=== PATIENT | female | born 1955 | race Caucasian/White ===

== ENCOUNTER 2019-06-30 14:46 | Inpatient (IN) | payer BC, OTHER ==
[~2019-06-30] VITALS: Ht 162.6 cm; Wt 83.5 kg
[2019-06-30] MEDS ORDERED: ALBUTEROL SULF 2.5 MG/0.5ML(0.5%) NEB SOLN HHN ONE (15:30)
[2019-06-30] MEDS ORDERED: IPRATROPIUM BROM 0.5 MG/2.5ML INH SOL HHN ONE (15:30)
[2019-06-30] MEDS ORDERED: methylPREDNISolone SOD SUCC 125 MG/2 ML VL IV ONE (15:30)
[2019-06-30 15:43] LABS: Basophils # (auto) 0.1 10 ^3/uL (0-0.2); Basophils % (auto) 0.8 % (0.0-2.0); Eosinophils # (auto) 0.2 10 ^3/uL (0-0.8); Eosinophils % (auto) 1.3 % (0.0-7.0); Hematocrit 39.8 % (36.0-46.0); Hemoglobin 13.3 g/dL (12.2-16.2); Lymphocytes # (auto) 2.6 10 ^3/uL (0.4-5.4); Lymphocytes % (auto) 18.6 % (10.0-50.0); Mean Corpuscular Hgb Conc. 33.3 g/dL (32.0-36.0); Mean Corpuscular Volume 87.2 fL (80.0-100.0); Monocytes # (auto) 1.2 10 ^3/uL (0-1.3); Monocytes % (auto) 8.3 % (0.0-12.0); Nucleated Red Blood Cells % 0.1 %; Platelet Count (auto) 293 10^3/uL (140-450); Red Blood Cells 4.57 10^6/uL (4.0-5.20); Red Cell Distribution Width 13.5 % (11.8-14.3); White Blood Cell 14.1 10^3/uL (4.4-10.8)
[2019-06-30 16:28] LABS: Alanine Aminotransferase 22 U/L (13-56); Albumin 3.3 g/dL (3.4-5.0); Anion Gap 6 (5-15); Aspartate Aminotransferase 11 U/L (15-37); BUN/Creatinine Ratio 15.5; Blood Urea Nitrogen 13 mg/dL (7-18); Calcium 8.8 mg/dL (8.5-10.1); Carbon Dioxide 24 mmol/L (21-32); Chloride 106 mmol/L (98-107); GFR African American 88 mL/min; GFR Non-African American 73 mL/min; Glucose 91 mg/dL (74-106); Potassium 3.7 mmol/L (3.5-5.1); Sodium 136 mmol/L (136-145)
[2019-06-30 16:33] LABS: Alkaline Phosphatase 100 U/L (45-117); Bilirubin, Total 0.6 mg/dL (0.2-1.0); Total Protein 7.5 g/dL (6.4-8.2)
[2019-06-30 17:04] LABS: Urine Bacteria NONE SEEN /hpf (None Seen); Urine Blood 1+ /uL (Negative); Urine Hyaline Cast FEW /lpf (0 - 2); Urine Mucus FEW (None Seen); Urine Specific Gravity 1.025 (1.001-1.035); Urine WBC 1 /hpf (0 - 5)
[2019-06-30] MEDS ORDERED: DEXTROSE (50%) 50ML SYRG IV PRN (17:15)
[2019-06-30] MEDS ORDERED: ONDANSETRON HCL 4 MG/2 ML VIAL IV PRN (17:15)
[2019-06-30] MEDS ORDERED: MORPHINE SULF INJ 2 MG/ML SYRINGE 1ML IV PRN ×2 (17:15)
[2019-06-30] MEDS ORDERED: ACETAMINOPHEN 500 MG TAB PO PRN (17:15)
[2019-06-30] MEDS ORDERED: NITROGLYCERIN 0.4 MG SL TAB SL PRN (17:15)
[2019-06-30] MEDS: HYDROcodone-ACET 5/325MG TAB PO PRN ×2 (17:34→17:41)
[2019-06-30] MEDS: cefTRIAXone 1GM/50ML D5W 50 ML IV SCH (17:34)
[2019-06-30] MEDS: IPRATROPIUM BROM 0.5 MG/2.5ML INH SOL NEB SCH (17:51)
[2019-06-30] MEDS: ALBUTEROL SULF 2.5 MG/0.5ML(0.5%) NEB SOLN NEB SCH (17:51)
[2019-06-30 18:03] LABS: Cholesterol 97 mg/dL (< 200); Triglycerides 167 mg/dL (< 150)
[2019-06-30 18:06] LABS: HDL Cholesterol 33 mg/dL (40-59); LDL Cholesterol 46 mg/dL (< 100)
[2019-06-30 20:24] VITALS: BP 112/97
[2019-06-30] MEDS ORDERED: AMLO5TAB15 PO (21:00)
[2019-06-30] MEDS ORDERED: ATOR10TA52 PO (21:00)
[2019-06-30] MEDS ORDERED: BUPR-60 PO (21:00)
[2019-06-30] MEDS ORDERED: OXY5T GT (21:00)
[2019-06-30] MEDS ORDERED: OMEP20TA PO (21:00)
[2019-06-30] MEDS ORDERED: DULA1INJ SC (21:22)
[2019-06-30] MEDS ORDERED: ALBU108A14 IN (21:22)
[2019-06-30] MEDS ORDERED: LATA0.0019 EACHEYE (21:22)
[2019-06-30] MEDS ORDERED: VALS160T43 PO (21:22)
[2019-06-30 22:18] VITALS: BP 131/73
[2019-06-30 22:29] VITALS: BP 131/73
[2019-06-30] MEDS: methylPREDNISolone SOD SUCC 125 MG/2 ML VL IV SCH (22:41)
[2019-06-30] MEDS: InsuLIN REG 1unit/0.01ml Soln (100units/ml) SC SCH (22:41)
[2019-06-30] MEDS: ACCU-CHEK COMFORT CURVE STRIP VI SCH (22:42)
[2019-07-01] MEDS: IPRATROPIUM BROM 0.5 MG/2.5ML INH SOL NEB SCH ×4 (01:16→18:41)
[2019-07-01] MEDS: ALBUTEROL SULF 2.5 MG/0.5ML(0.5%) NEB SOLN NEB SCH ×4 (01:16→18:41)
[2019-07-01 05:14] VITALS: BP 114/72
[2019-07-01 05:24] LABS: Basophils # (auto) 0 10 ^3/uL (0-0.2); Basophils % (auto) 0.1 % (0.0-2.0); Eosinophils # (auto) 0 10 ^3/uL (0-0.8); Hematocrit 38.8 % (36.0-46.0); Hemoglobin 13.1 g/dL (12.2-16.2); Lymphocytes # (auto) 1.2 10 ^3/uL (0.4-5.4); Lymphocytes % (auto) 10.1 % (10.0-50.0); Mean Corpuscular Hemoglobin 29.5 pg (28.0-32.0); Mean Corpuscular Hgb Conc. 33.7 g/dL (32.0-36.0); Mean Corpuscular Volume 87.7 fL (80.0-100.0); Monocytes # (auto) 0.1 10 ^3/uL (0-1.3); Monocytes % (auto) 1.2 % (0.0-12.0); Neutrophils # (auto) 10.3 10 ^3/uL (1.6-8.6); Neutrophils % (auto) 88.6 % (37.0-80.0); Platelet Count (auto) 279 10^3/uL (140-450); Red Blood Cells 4.42 10^6/uL (4.0-5.20); Red Cell Distribution Width 13.6 % (11.8-14.3); White Blood Cell 11.6 10^3/uL (4.4-10.8)
[2019-07-01 05:40] LABS: BUN/Creatinine Ratio 16.2; Calcium 9.3 mg/dL (8.5-10.1); Potassium 4.2 mmol/L (3.5-5.1)
[2019-07-01] MEDS: InsuLIN REG 1unit/0.01ml Soln (100units/ml) SC SCH ×4 (06:03→22:18)
[2019-07-01] MEDS: ACCU-CHEK COMFORT CURVE STRIP VI SCH ×4 (06:04→22:18)
[2019-07-01 08:00] VITALS: BP 111/74
[2019-07-01] MEDS: FAMOTIDINE 20 MG TAB PO SCH (08:52)
[2019-07-01] MEDS: methylPREDNISolone SOD SUCC 125 MG/2 ML VL IV SCH (08:52)
[2019-07-01] MEDS: cefTRIAXone 1GM/50ML D5W 50 ML IV SCH (08:53)
[2019-07-01 12:00] VITALS: BP 103/58
[2019-07-01 16:54] VITALS: BP 102/62
[2019-07-01] MEDS: levoFLOXacin 750MG 150 ML IV SCH (17:32)
[2019-07-01 22:00] VITALS: BP 123/90
[2019-07-01] MEDS: methylPREDNISolone SOD SUCC 40 MG/ML VL IV SCH (22:18)
[2019-07-02 05:30] VITALS: BP 114/68
[2019-07-02] MEDS: InsuLIN REG 1unit/0.01ml Soln (100units/ml) SC SCH ×3 (05:50→17:43)
[2019-07-02] MEDS: methylPREDNISolone SOD SUCC 40 MG/ML VL IV SCH ×2 (05:50→13:36)
[2019-07-02] MEDS: ACCU-CHEK COMFORT CURVE STRIP VI SCH ×3 (05:51→17:42)
[2019-07-02 06:05] LABS: Basophils # (auto) 0 10 ^3/uL (0-0.2); Basophils % (auto) 0.2 % (0.0-2.0); Eosinophils # (auto) 0 10 ^3/uL (0-0.8); Hematocrit 38.3 % (36.0-46.0); Hemoglobin 12.8 g/dL (12.2-16.2); Lymphocytes # (auto) 1.4 10 ^3/uL (0.4-5.4); Lymphocytes % (auto) 7.1 % (10.0-50.0); Mean Corpuscular Hemoglobin 29.4 pg (28.0-32.0); Mean Corpuscular Hgb Conc. 33.3 g/dL (32.0-36.0); Mean Corpuscular Volume 88.3 fL (80.0-100.0); Monocytes # (auto) 0.4 10 ^3/uL (0-1.3); Monocytes % (auto) 2.3 % (0.0-12.0); Neutrophils # (auto) 17.5 10 ^3/uL (1.6-8.6); Neutrophils % (auto) 90.4 % (37.0-80.0); Platelet Count (auto) 317 10^3/uL (140-450); Red Blood Cells 4.34 10^6/uL (4.0-5.20); Red Cell Distribution Width 13.6 % (11.8-14.3); White Blood Cell 19.4 10^3/uL (4.4-10.8)
[2019-07-02 06:16] LABS: Calcium 9.7 mg/dL (8.5-10.1)
[2019-07-02] MEDS: IPRATROPIUM BROM 0.5 MG/2.5ML INH SOL NEB SCH ×3 (06:34→18:57)
[2019-07-02] MEDS: ALBUTEROL SULF 2.5 MG/0.5ML(0.5%) NEB SOLN NEB SCH ×3 (06:34→18:57)
[2019-07-02 09:01] VITALS: BP 131/76
[2019-07-02] MEDS ORDERED: ENOXAPARIN SOD 40 MG/0.4 ML SYRINGE SC SCH (10:00)
[2019-07-02] MEDS: FAMOTIDINE 20 MG TAB PO SCH (10:10)
[2019-07-02] MEDS: levoFLOXacin 750MG 150 ML IV SCH (10:11)
[2019-07-02 13:00] VITALS: BP 105/70
[2019-07-02] MEDS: HYDROcodone-ACET 5/325MG TAB PO PRN (16:31)
[2019-07-02] MEDS ORDERED: ATORVASTATIN 20 MG TAB PO SCH (16:45)
[2019-07-02] MEDS ORDERED: PRED20TA2 PO (16:48)
[2019-07-02] MEDS ORDERED: LEVO750T2 PO (16:48)
[2019-07-02 17:07] VITALS: BP 107/69
[2019-07-02 18:52] VITALS: BP 107/69
== END 2019-07-02 19:19 | disposition home or self-care (01) | DRG 189 ==
LOC: ER 14:51 → TELE-WESTW 14:52
PROVIDERS: ADMIT Nurse Practitioner Acute Care; ATTEND Internal Medicine
DX: J96.01 Acute respiratory failure with hypoxia (principal); J44.1 Chronic obstructive pulmonary disease with (acute) exacerbation; J45.901 Unspecified asthma with (acute) exacerbation; I10 Essential (primary) hypertension; D72.829 Elevated white blood cell count, unspecified; E66.01 Morbid (severe) obesity due to excess calories; E11.9 Type 2 diabetes mellitus without complications; E78.5 Hyperlipidemia, unspecified; T38.0X5A Adverse effect of glucocorticoids and synthetic analogues, initial encounter; J06.9 Acute upper respiratory infection, unspecified; Z68.31 Body mass index [BMI] 31.0-31.9, adult; Z82.49 Family history of ischemic heart disease and other diseases of the circulatory system; Z87.891 Personal history of nicotine dependence; Y92.89 Other specified places as the place of occurrence of the external cause; Z90.710 Acquired absence of both cervix and uterus
CPT/HCPCS: 36415; 71045; 80048; 80053; 80061; 81001; 82962; 83036; 83605; 83880; 84484; 85025; 87040; 87804; 93005; 94640; 94644; 96365; 96372; 96375; G0378; J0696; J1815; J1956; J2405

== ENCOUNTER 2020-02-13 11:59 | Emergency (ER) | payer BC ==
[~2020-02-13] VITALS: Ht 162.6 cm; Wt 81.6 kg
[~2020-02-13 11:59] MED LIST: ALBU108A14 IN; AMLO5TAB15 PO; ATOR10TA52 PO; BUPR-60 PO; DULA1INJ SC; LATA0.0019 EACHEYE; LEVO750T8 PO; OMEP20TA PO; OXY5T GT; PRED20TA2 PO; VALS160T43 PO
[2020-02-13 12:05] VITALS: BP 136/88
== END 2020-02-13 14:45 | disposition home or self-care (01) ==
LOC: ER 11:59
DX: M16.12 Unilateral primary osteoarthritis, left hip (principal); E78.5 Hyperlipidemia, unspecified; I10 Essential (primary) hypertension; J45.909 Unspecified asthma, uncomplicated; Z90.710 Acquired absence of both cervix and uterus
CPT/HCPCS: 73502

== ENCOUNTER 2021-07-13 11:33 | Emergency (ER) | payer BC ==
[~2021-07-13] VITALS: Ht 162.6 cm; Wt 79.4 kg
[~2021-07-13 11:33] MED LIST changes: +AMLO-489 PO; -AMLO5TAB15 PO
[2021-07-13 12:02] VITALS: BP 144/84
[2021-07-13] MEDS ORDERED: IBUP800T27 PO (13:32)
== END 2021-07-13 13:41 | disposition home or self-care (01) ==
LOC: ER 11:33
DX: M75.32 Calcific tendinitis of left shoulder (principal); E11.9 Type 2 diabetes mellitus without complications; I10 Essential (primary) hypertension; E78.5 Hyperlipidemia, unspecified; Z90.710 Acquired absence of both cervix and uterus; Z79.899 Other long term (current) drug therapy
CPT/HCPCS: 73030